=== PATIENT | female | born 1965 | race African-American/Black ===

== ENCOUNTER 2019-09-22 15:33 | Outpatient (CLI) | payer OTHER, SELFPAY ==
--- NOTE | ~2019-09-22 | MM_ITS ---
EXAMINATION: MM screening mayda BI w oneal HISTORY: Screening mammogram TECHNIQUE: Craniocaudal and mediolateral oblique 3-D tomosynthesis images were obtained and synthetic 2-D images were generated. CAD analysis was submitted and interpreted. COMPARISON: 09/06/2018, 02/06/2017, 06/08/2015 bilateral digital screening mammogram examinations BREAST PARENCHYMAL COMPOSITION: There are scattered areas of fibroglandular density. FINDINGS: There is no evidence of suspicious mass, calcification, or architectural distortion to sugg est malignancy in either breast. There has been no suspicious interval change. IMPRESSION: 1. No mammographic evidence of malignancy. 2. Recommend routine screening mammography in one year. BI-RADS Category 1: Negative Reviewed, dictated and finalized at location A.
== END 2019-09-22 15:34 | disposition home or self-care (01) ==
LOC: ANHIMG 15:35
PROVIDERS: PCP Internal Medicine; Visit Provider Internal Medicine
DX: Z12.31 Encounter for screening mammogram for malignant neoplasm of breast (principal)
CPT/HCPCS: 77063; 77067

== ENCOUNTER 2020-01-01 12:50 | Outpatient (CLI) | payer OTHER, SELFPAY ==
--- NOTE | 2020-01-01 12:52 | ECG_ITS ---
Measurements Intervals [place] Rate: 70 P: 56 IA: 168 QRS: 42 QRSD: 84 T: 8 QT: 372 QTc: 404 Interpretive Statements SINUS RHYTHM NONSPECIFIC T-WAVE ABNORMALITY- ANT/INF LEADS BORDERLINE ECG Electronically Signed On 01-01-2020 13:53:45 DIRECTOR OF COLLECTIONS AND ARCHIVES by Benjamin Salazar D.O.
[2020-01-01 13:49] LABS: Anion Gap 11 mmol/L (8-16); Blood Urea Nitrogen 12 mg/dL (7-17); Calcium 9.5 mg/dL (8.4-10.2); Carbon Dioxide 25 mmol/L (22-30); Chloride 106 mmol/L (98-107); Estimated Glomerular Filt Rate > 60; Glucose 84 mg/dL (65-105); Potassium 4.3 mmol/L (3.4-5.0); Sodium 142 mmol/L (137-145)
== END 2020-01-01 12:51 | disposition home or self-care (01) ==
PROVIDERS: Anesthesiology; PCP Internal Medicine; Visit Provider Podiatrist Foot & Ankle Surgery
DX: Z01.818 Encounter for other preprocedural examination (principal); I10 Essential (primary) hypertension; E11.9 Type 2 diabetes mellitus without complications
CPT/HCPCS: 36415; 80048; 93005

== ENCOUNTER 2020-01-05 02:08 | Outpatient (CLI) | payer OTHER, SELFPAY ==
[2020-01-05 19:52] LABS: SARS-CoV-2 RNA PCR Negative
== END 2020-01-05 02:09 | disposition home or self-care (01) ==
LOC: ANHCOVIDDT 02:08
PROVIDERS: PCP Internal Medicine; Visit Provider Podiatrist Foot & Ankle Surgery
DX: Z01.812 Encounter for preprocedural laboratory examination (principal); Z20.828 Contact with and (suspected) exposure to other viral communicable diseases
CPT/HCPCS: 87635; C9803; U0003

== ENCOUNTER 2020-01-08 00:23 | Day surgery (SDC) | payer OTHER, SELFPAY ==
[2019-12-26 09:34] VITALS: BMI 34.5
--- NOTE | 2020-01-07 13:35 | WPDANESEPP ---
Anes - Eval Pre Procedure Procedure: Operation Date: 01/08/20 07:30 Proposed Procedures p Removal Hardware Right Foot - Henry Jacobs DPM Date/Time: 01/07/20 13:35 Pre Op Diagnosis: painful hardware right foot Patient Data Age: 54 Gender: F Height: 1.55 m Weight: 83 kg Allergies Allergy/AdvReac Type Severity Reaction Status Date / Time codeine Allergy Severe HIVES Verified 12/26/19 09:09 Home Medications Medication Instructions Recorded Confirmed Type amitriptyline 12.5 mg PO HS 12/26/19 12/26/19 History atorvastatin 20 mg PO HS 12/26/19 12/26/19 History carvedilol phosphate [Coreg CR] 80 mg PO DAILY 12/26/19 12/26/19 History estradiol 0.5 mg PO DAILY 12/26/19 12/26/19 History gabapentin 600 mg PO HS 12/26/19 12/26/19 History lisinopril 40 mg PO DAILY 12/26/19 12/26/19 History metformin 500 mg PO DAILY 12/26/19 12/26/19 History topiramate [Topamax] 50 mg PO BID 12/26/19 12/26/19 History topiramate [Topamax] 200 mg PO HS 12/26/19 12/26/19 History vitamin D3-folic acid 1 tablet PO DAILY 12/26/19 12/26/19 History Patient hx anesthesia problems: none Family hx anesthesia problems: none PMFSH Past Medical History Medical History HLD (hyperlipidemia) HTN (hypertension) Migraines Surgical History Surgical History History of hysterectomy S/P right rotator cuff repair Social History Social History Smoking status: Never smoker Exam Day of Procedure 01/07/20 13:35
[2020-01-08] VITALS (8 sets, daily range): BP systolic 110–141; BP diastolic 66–81; PULSE 57–70; RESP 10–14; TEMP 36–36.4; O2SAT 95–100
--- NOTE | 2020-01-08 06:42 | WPDANESEPPF ---
Anes - Initial Pre Proc Eval Procedure: Operation Date: 01/08/20 07:30 Proposed Procedures p Removal Hardware Right Foot - Henry Jacobs DPM Date/Time: 01/08/20 06:42 Surgeon: Henry Jacobs DPM Pre Op Diagnosis: painful hardware right foot Patient Data Age: 54 Gender: F Height: 1.55 m Weight: 83 kg Allergies Allergy/AdvReac Type Severity Reaction Status Date / Time codeine Allergy Severe HIVES Verified 01/08/20 06:52 Home Medications Medication Instructions Recorded Confirmed Type amitriptyline 12.5 mg PO HS 12/26/19 01/08/20 History atorvastatin 20 mg PO HS 12/26/19 01/08/20 History carvedilol phosphate [Coreg CR] 80 mg PO DAILY 12/26/19 01/08/20 History estradiol 0.5 mg PO DAILY 12/26/19 01/08/20 History gabapentin 600 mg PO HS 12/26/19 01/08/20 History lisinopril 40 mg PO DAILY 12/26/19 01/08/20 History metformin 500 mg PO DAILY 12/26/19 01/08/20 History topiramate [Topamax] 50 mg PO BID 12/26/19 01/08/20 History topiramate [Topamax] 200 mg PO HS 12/26/19 01/08/20 History vitamin D3-folic acid 1 tablet PO DAILY 12/26/19 01/08/20 History Patient hx anesthesia problems: none Family hx anesthesia problems: none PMFSH Past Medical History Medical History HLD (hyperlipidemia) HTN (hypertension) Migraines Surgical History Surgical History History of hysterectomy S/P right rotator cuff repair Social History Social History Smoking status: Never smoker Living arrangements: with family Anes - Eval Final PreProcedure Day of Procedure 01/08/20 06:42 Patient weight: obese Heart: regular rate and rhythm Lungs: clear to auscultation and normal air movement Airway: Mallampati scale class II Neurological: alert and oriented Last oral intake: >/= 8 hours ASA classification: III Emergent: no Anesthetic plan: proceed Anesthesia type and monitoring: general GIVS and LMA Informed Consent: The patient's anesthetic plan and its attendant risks and benefits were discussed with the patient/family/POA. Questions were solicited and answers provided to the satisfaction of the patient/family/POA.
--- NOTE | 2020-01-08 06:57 | WPDHPUPDATE1 ---
History and Physical Update Update Date/Time: 01/08/20 06:57 History and Physical has been reviewed, including an updated exam of the patient. There are NO changes in the patient's condition. Risks, benefits, and alternatives have been discussed and questions answered. Patient agrees to proceed with procedure. Proposed Procedure: Hardware removal right foot.
[2020-01-08] MEDS: LACTATED RINGERS 1,000 ML 30 ML IV CONT (07:23)
[2020-01-08 07:34] LABS: Glucose Point of Care 98 (65-105)
[2020-01-08] MEDS: ceFAZolin 2 GM/D5W 50 ML 2 GM/50 ML BAG IVPB (07:36)
[2020-01-08] MEDS: BUPIVACAINE HCL 0.5% PF 30 ML VIAL 10 ML INFILTRATE (07:36)
--- NOTE | 2020-01-08 08:03 | PM.PROC ---
Procedure Note - Detailed Date of procedure: 01/08/20 Pre-op diagnosis: painful hardware right foot Post-op diagnosis: same Procedure performed: Removal of Painful Hardware, right foot. Description of procedure: The patient was brought to the operating room and placed on the OR table in the supine position. Following IV sedation, local anesthetsia was achieved with a forefoot block consisting of 20ccs of a 1:1 mixture of 0.5% marcaine plain and 1% lidocaine plain. The foot was then scrubbed, prepped, and draped in the usual aseptic technique. An esmarch bandage was used to exsanguinate the foot and the pneumatic ankle tourniquet set to 250mm/Hg was inflated. Attention was directed to the first ray. A 1.0cm incision was made over her prior bunion incision. The incision was deepened using sharp and blunt dissection, all bleeders were cauterized as necessary. Dissection was carried down to the 1st metatarsal neck where the hardware was easily visualized. Utilizing standard A-O technique, the 3.0 screw was removed without incident. The edges of the bone were hand-filed smooth. The wound was flushed with copious amounts of sterile normal saline. The skin was coapated and reapproximated with 4-0 nylon. The surgical site was dressed with antibiotic ointment, adaptec, gauze, kyaw, and coban. The pneumatic ankle tourniquet was deflated and a prompt capillary fill response was noted to all digits of the right foot. The patient was transported to the PACU with vital signs stable and vascular status intact to the right foot. Following a period of post-operative monitoring, the patient will be discharged home with the following instructions: limit activity, ice and elevate the right foot, and keep the dressing clean and dry. She was given a post-operative shoe and advised to wear this at all times when bearing weight. She has a follow-up appointment in 1 week time, sooner if problems arise. Implants: None. Anesthesia: MAC Surgeon: Henry Jacobs DPM Estimated blood loss (mL): 0 Tourniquet time (min): 11 Drains: No Packing: No Pathology: none sent Complications: No immediate complications Condition: stable Disposition: PACU
[2020-01-08 08:25] LABS: Glucose Point of Care 98 (65-105)
[2020-01-08] MEDS: fentaNYL CITRATE INJ (*CRX) 100 MCG/2 ML VIAL 25 MCG IV PUSH (08:26)
== END 2020-01-08 09:55 | disposition home or self-care (01) ==
PROVIDERS: PCP Internal Medicine; Visit Provider Podiatrist Foot & Ankle Surgery
PROC: (CPT 20680; principal; 2020-01-08 07:30)
DX: T84.84XA Pain due to internal orthopedic prosthetic devices, implants and grafts, initial encounter (principal); Y83.8 Other surgical procedures as the cause of abnormal reaction of the patient, or of later complication, without mention of misadventure at the time of the procedure; I10 Essential (primary) hypertension; E78.5 Hyperlipidemia, unspecified
CPT/HCPCS: 20680; A9270; J0690; J1100; J2250; J2704; J3010; J7120

== ENCOUNTER 2020-12-12 15:07 | Outpatient (CLI) | payer OTHER, SELFPAY ==
--- NOTE | ~2020-12-12 | MM_ITS ---
EXAMINATION: MM screening mayda BI w oneal HISTORY: Screening mammogram TECHNIQUE: Craniocaudal and mediolateral oblique 3-D tomosynthesis images were obtained and synthetic 2-D images were generated. CAD analysis was submitted and interpreted. COMPARISON: 09/22/2019, 09/06/2018, 02/06/2017 bilateral digital screening mammogram examinations BREAST PARENCHYMAL COMPOSITION: There are scattered areas of fibroglandular density. FINDINGS: There is no evidence of suspicious mass, calcification, or architectural distortion to sugg est malignancy in either breast. There has been no suspicious interval change. IMPRESSION: 1. No mammographic evidence of malignancy. 2. Recommend routine screening mammography in one year. BI-RADS Category 1: Negative Reviewed, dictated and finalized at location A.
== END 2020-12-12 15:08 | disposition home or self-care (01) ==
LOC: ANHIMG 15:11
PROVIDERS: PCP Internal Medicine; Visit Provider Internal Medicine
DX: Z12.31 Encounter for screening mammogram for malignant neoplasm of breast (principal)
CPT/HCPCS: 77063; 77067

== ENCOUNTER 2022-01-05 07:48 | Outpatient (CLI) | payer BC, SELFPAY ==
--- NOTE | ~2022-01-05 | MM_ITS ---
EXAMINATION: MM screening mayda BI w oneal HISTORY: Screening TECHNIQUE: Craniocaudal and mediolateral oblique 3-D tomosynthesis images were obtained and synthetic 2-D images were generated. CAD analysis was submitted and interpreted. COMPARISON: Comparison to multiple prior studies sequentially, with oldest reviewed study dated 09/2014. BREAST PARENCHYMAL COMPOSITION: There are scattered areas of fibroglandular density. FINDINGS: There is no evidence of suspicious mass, calcification, or architectural distortion to sugg est malignancy in either breast. There has been no suspicious interval change. IMPRESSION: 1. No mammographic evidence of malignancy. 2. Recommend routine screening mammography in one year. BI-RADS Category 1: Negative Reviewed, dictated and finalized at location A. LE CLERK
== END 2022-01-05 07:49 | disposition home or self-care (01) ==
LOC: ANHIMG 07:53
PROVIDERS: PCP Internal Medicine
DX: Z12.31 Encounter for screening mammogram for malignant neoplasm of breast (principal)
CPT/HCPCS: 77063; 77067

== ENCOUNTER 2023-08-07 07:27 | Outpatient (CLI) | payer BC, SELFPAY ==
--- NOTE | ~2023-08-07 | MM_ITS ---
EXAMINATION: MM screening mayda BI w oneal HISTORY: Screening TECHNIQUE: Craniocaudal and mediolateral oblique 3-D tomosynthesis images were obtained and synthetic 2-D images were generated. CAD analysis was submitted and interpreted. COMPARISON: Comparison to multiple prior studies sequentially, with oldest reviewed study dated 06/07. BREAST PARENCHYMAL COMPOSITION: Not dense: There are scattered areas of fibroglandular density. FINDINGS: Interval breast changes are present bilaterally consistent with breast reduction surgery. T here are new clusters of calcifications in the upper outer quadrant of both breasts, middle third whi ch are nonspecific. There are no suspicious masses or architectural distortion. IMPRESSION: 1. Indeterminate clustered bilateral breast calcifications upper outer quadrants. 2. Magnification views are recommended. BI-RADS Category 0: Incomplete: Needs additional imaging evaluation. Reviewed, dictated and finalized at location B. IMPRESSION: 1. Indeterminate clustered bilateral breast calcifications upper outer quadrant s. 2. Magnification views are recommended. BI-RADS Category 0: Incomplete: Needs additional imaging evaluation.
== END 2023-08-07 07:28 | disposition home or self-care (01) ==
PROVIDERS: PCP Internal Medicine
DX: Z12.31 Encounter for screening mammogram for malignant neoplasm of breast (principal); R92.8 Other abnormal and inconclusive findings on diagnostic imaging of breast
CPT/HCPCS: 77063; 77067